=== PATIENT | male | born 1965 | race Caucasian/White ===

== ENCOUNTER 2016-03-27 18:10 | Emergency (ER) | payer SELFPAY ==
--- NOTE | 2016-03-27 18:53 | RAD ---
EXAMINATION:SHOULDER-LEFT 2 OR MORE VIEWS Clinical indication:Left shoulder pain. Ground-level fall 3 days ago. Initial encounter. Comparisons:None Findings: No fracture is identified. The glenohumeral joint is maintained. The acromioclavicular joint is unremarkable. The adjacent soft tissues are unremarkable. IMPRESSION: Normal radiographic evaluation of the left shoulder.
== END 2016-03-27 19:20 | disposition home or self-care (01) ==
LOC: ED 18:10
DX: S49.92XA Unspecified injury of left shoulder and upper arm, initial encounter (principal); M25.512 Pain in left shoulder; F17.210 Nicotine dependence, cigarettes, uncomplicated; W10.0XXA Fall (on)(from) escalator, initial encounter; Y92.9 Unspecified place or not applicable